=== PATIENT | female | born 1985 | race Caucasian/White ===

== ENCOUNTER 2017-09-02 13:32 | Outpatient (CLI) | payer MEDICAID ==
--- NOTE | 2017-09-02 15:56 | ULT ---
ABDOMEN ULTRASOUND COMPLETE: HISTORY: A 32-year-old female with a history of abdominal pain, particularly right lower quadrant pain for 1 m onth. FINDINGS: The gallbladder is demonstrated without evidence for gallstones. There does appear to be some layeri ng sludge within the gallbladder. Common bile duct is 0.4 cm. Visualized liver, pancreas, IVC, aorta, and spleen are unremarkable. No renal hydronephrosis. No ab scess or abnormal fluid collection. IMPRESSION: Some layering sludge within the gallbladder without overt gallstones or wall thickening or significan t ductal dilatation. No other significant acute process. POS: [facility]
--- NOTE | 2017-09-02 16:17 | ULT ---
PELVIC ULTRASOUND INCLUDING TRANSABDOMINAL AND TRANSVAGINAL AND VASCULAR DUPLEX WITH COLOR AND SPECRA L DOPPLER IMAGING: HISTORY: A 32-year-old female with right lower quadrant pain for 1 month. FINDINGS: The uterus measures 7.7 x 4.5 x 6.1 cm. The right ovary measures 1.7 x 4.3 x 2.2 cm. The left ovary measures 2.6 x 4.45 x 1.9 cm. Both ovaries are at the upper range of normal in size. There are geovanni e follicles noted in both ovaries, but no significant abnormal increased number of follicles. Vascular duplex including color and spectral Doppler imaging demonstrates arterial inflow and venous outflow. No evidence for ovarian torsion. IMPRESSION: Upper range of normal-sized ovaries, but no significant abnormal increased ovarian follicles. No mas s or abscess or abnormal fluid collection within the pelvis. Unremarkable uterus. POS: [facility]
== END 2017-09-02 13:33 | disposition home or self-care (01) ==
LOC: ULT 13:32
PROVIDERS: ATTEND Family Medicine
DX: R10.31 Right lower quadrant pain (principal); K83.9 Disease of biliary tract, unspecified
CPT/HCPCS: 76700; 76856